=== PATIENT | female | born 1945 | race Caucasian/White ===

== ENCOUNTER 2023-07-24 20:10 | Emergency (ER) | payer MEDICARE, OTHER ==
[2023-07-24] MEDS: Ampicillin/Sulbactam Na 3 GM in Sodium Chloride 0.9% 100 ML IV ONE (20:43)
[2023-07-24] MEDS: Sodium Chloride 0.9% 10 ML Syringe FLUSH PRN (20:55)
[2023-07-24] MEDS: Take Home: Clindamycin HCl 150 MG, 12 Cap Pack PO ONE (21:13)
== END 2023-07-24 21:20 | disposition home or self-care (01) ==
LOC: DL.ED 20:10
DX: K04.7 Periapical abscess without sinus (principal)
CPT/HCPCS: 96365; 99282; 99283-25; A9270-GY; J0295; J3490